=== PATIENT | male | born 2000 | race Caucasian/White ===

== ENCOUNTER 2019-11-09 14:24 | Emergency (ER) | payer BC ==
[2019-11-09 14:34] VITALS: BP 115/62; PULSE 80; TEMP 98; BMI 25.7
--- NOTE | 2019-11-09 14:40 | PDOC ---
Rapid Medical Evaluation Chief Complaint: Penile Drainage Time Seen by Provider: 11/09/19 14:35 Medical Evaluation: Allergies Allergy/AdvReac Type Severity Reaction Status Date / Time No Known Allergies Allergy Verified 06/02/16 20:37 Vital Signs Temp Pulse Resp BP Pulse Ox 98.0 F 80 18 115/62 98 11/09/19 14:31 11/09/19 14:31 11/09/19 14:31 11/09/19 14:31 11/09/19 14:31 11/09/19 14:38 Pt c/o: rash and itching x 1.5 months around and under the foreskin, unable to complete retract foreskin secondary to pain Pt on brief exam: + fungal rash, no drainage , no concern for std Pt ordered for : none Pt to proceed to the ED Discharge Disposition - Diagnosis Skin rash - Discharge Dispostion Condition at time of disposition: Stable - Referrals - Patient Instructions - Post Discharge Activity
[2019-11-09] MEDS ORDERED: AZITHROMYCIN 500 MG TABLET PO ONE (15:34)
[2019-11-09] MEDS ORDERED: AZITHROMYCIN 250 MG TABLET ONE (15:44)
--- NOTE | 2019-11-09 16:01 | PDOC ---
History of Present Illness - General Chief Complaint: Penile Drainage Stated Complaint: PAIN Time Seen by Provider: 11/09/19 14:35 History Source: Patient Exam Limitations: Clinical Condition - History of Present Illness Initial Comments: 11/09/19 16:01 Patient with no significant past medical history present with complaint of 1 month history of rash to glans of the penis which increased pain when he retract foreskin. Patient reported using [id number] antibacterial cream with no improvement. Patient reported yellow discharge around the glans of the penis and the foreskin. Patient is uncircumcised. Denies fever, chills, burning with urination, testicular pain or swelling. Patient sexually active with one partner. Denies any other symptoms Is this a multiple visit Asthma Patient?: No Timing/Duration: other (1 month) Past History - Past Medical History Allergies/Adverse Reactions: Allergies Allergy/AdvReac Type Severity Reaction Status Date / Time No Known Allergies Allergy Verified 06/02/16 20:37 Home Medications: Ambulatory Orders Ibuprofen [Motrin -] 400 mg PO QID PRN #28 tablet 06/02/16 Fluconazole [Diflucan] 150 mg PO ONCE #1 tablet 11/09/19 Ketoconazole 2% Cream [Nizoral 2% Cream -] 1 applic TP BID 10 Days #1 cream COPD: No - Immunization History Immunization Up to Date: No - Psycho Social/Smoking Cessation Hx Smoking History: Never smoked Have you smoked in the past 12 months: No Information on smoking cessation initiated: No Hx Alcohol Use: No Drug/Substance Use Hx: No Review of Systems - Review of Systems Able to Perform ROS?: Yes Is the patient limited Sinhala proficient: No Constitutional: No: Chills, Fever, Malaise HEENTM: No: Symptoms Reported, See HPI, Eye Pain, Blurred Vision, Tearing, Recent change in vision, Double Vision, Cataracts, Ear Pain, Ocular Prothesis, Ear Discharge, Nose Pain, Nose Congestion, Tinnitus, Nose Bleeding, Hearing Loss , Throat Pain, Throat Swelling, Mouth Pain, Dental Problems, Difficulty Swallowing, Mouth Swelling, Other Respiratory: No: Symptoms reported, See HPI, Cough, Orthopnea, Shortness of Breath, SOB with Exertion, SOB at Rest, Stridor, Wheezing, Productive cough, Hemoptysis, Other ABD/GI: No: Symptoms Reported : Yes: Symptoms Reported, See HPI, Discharge, Pain (gland of penis), Lesions ( rash to penis). No: Dysuria, Frequency, Flank Pain, Urgency, Testicular Mass, Testicular Swelling, Testicular Pain Musculoskeletal: No: Symptoms Reported, Back Pain All Other Systems: Reviewed and Negative *Physical Exam - Vital Signs Last Vital Signs Temp Pulse Resp BP Pulse Ox 98.0 F 80 18 115/62 98 11/09/19 14:31 11/09/19 14:31 11/09/19 14:31 11/09/19 14:31 11/09/19 14:31 - Physical Exam General Appearance: Yes: Nourished, Appropriately Dressed. No: Apparent Distress HEENT: positive: Normal ENT Inspection Neck: positive: Supple Respiratory/Chest: positive: Normal Breath Sounds. negative: Respiratory Distress, Accessory Muscle Use Musculoskeletal: positive: Normal Inspection Extremity: positive: Normal Inspection Integumentary: positive: Rash (diffused erythema to gland of penis of uncircumsized penis. ), Other (mild yellow discharge on gland of penis) Neurologic: positive: Fully Oriented, Alert, Normal Response ED Treatment Course - Medications Given in the ED: ED Medications Discontinued Medications Generic Name Dose Route Start Last Admin Trade Name Freq PRN Reason Stop Dose Admin Azithromycin 1,000 mg 11/09/19 15:34 11/09/19 15:50 Zithromax PO 11/09/19 15:35 1,000 mg ONCE ONE Administration Ceftriaxone Sodium 250 mg 11/09/19 15:34 11/09/19 15:50 Rocephin - IM 11/09/19 15:35 250 mg ONCE ONE Administration Medical Decision Making - Medical Decision Making 11/09/19 16:02 Patient with no significant past medical history present with complaint of 1 month history of rash to glans of the penis which increased pain when he retract foreskin. Patient reported using [id number] antibacterial cream with no improvement. Patient reported yellow discharge around the glans of the penis and the foreskin. Patient is uncircumcised. Denies fever, chills, burning with urination, testicular pain or swelling. Patient sexually active with one partner. Denies any other symptoms Exam significant for diffuse erythema to glans of the penis and uncircumcised male with dryness excoriation to skin of the foreskin over the glans of penis. No open wounds. Patient symptoms likely Maribel balanitis. Swab of discharge to glans of penis obtained for genital culture. Patient be treated empirically with ceftriaxone 250 mg IM and azithromycin 1 g p.o. for possible STI. Patient stable for discharge on Diflucan and topical ketoconazole with urology follow-up Discharge - Discharge Information Problems reviewed: Yes Clinical Impression/Diagnosis: Candidal balanitis Condition: Stable Disposition: HOME - Admission No - Additional Discharge Information Prescriptions: Fluconazole [Diflucan] 150 mg PO ONCE #1 tablet Ketoconazole 2% Cream [Nizoral 2% Cream -] 1 applic TP BID 10 Days #1 cream - Follow up/Referral Referrals: Moncho Jacinto MD [Staff Physician] - - Patient Discharge Instructions Patient Printed Discharge Instructions: Yeast Infection-Skin Additional Instructions: Your rash is likely from fungal infection. Take prescribed medication as prescribed for rash. Follow-up referred urologist in 3 to 5 days for reassessment of the rash - Post Discharge Activity
== END 2019-11-09 16:21 | disposition home or self-care (01) ==
LOC: JERFT 14:24
DX: B37.42 Candidal balanitis (principal)
CPT/HCPCS: 87070; 87077; 87205; 99281-25